=== PATIENT | female | born 1970 | race Asian ===

== ENCOUNTER 2023-05-08 04:09 | Day surgery (SDC) | payer BC ==
[2023-05-01 12:37] VITALS: BMI 21.0
[2023-05-08] MEDS ORDERED: PROPOFOL 20 ML ONE (12:04)
[2023-05-08] MEDS ORDERED: MIDAZOLAM HCL 2 MG/2 ML SINGLE DOSE VIAL ONE (12:04)
[2023-05-08] MEDS ORDERED: oxyCODONE HCL 5 MG TABLET PO PRN ×2 (12:16)
[2023-05-08] MEDS ORDERED: ACETAMINOPHEN 325 MG TABLET (FP) PO PRN (12:16)
[2023-05-08] MEDS ORDERED: BUPIVACAINE HCL/PF 0.5% (5MG/ML) 10 ML VIAL ONE (12:30)
[2023-05-08] MEDS ORDERED: LACTATED RINGERS SOLUTION 1,000 ML IV SCH (12:30)
[2023-05-08] MEDS ORDERED: LIDOCAINE HCL 1%, 10 MG/ML (20ML VIAL) ONE (12:30)
[2023-05-08] MEDS ORDERED: ceFAZolin SODIUM 1 GM VIAL ONE ×2 (13:04)
[2023-05-08] MEDS: ceFAZolin SODIUM 1 GM VIAL IVPB ONE (13:05)
[2023-05-08] MEDS: LIDOCAINE HCL 1%, 10 MG/ML (50 mL VIAL) INF ONE ×2 (13:19)
[2023-05-08] MEDS: BUPIVACAINE HCL/PF 0.5% (5 MG/ML) 30 ML VIAL IJ ONE ×2 (13:19)
[2023-05-08] MEDS ORDERED: ePHEDrine SULFATE 50 MG/1 ML AMPULE ONE (13:25)
[2023-05-08 16:29] VITALS: PULSE 66; RESP 14
[2023-05-08 16:37] VITALS: BP 120/76; TEMP 97.7
[2023-05-08] MEDS: ONDANSETRON 4 MG/2 ML VIAL IVPUSH PRN (16:51)
[2023-05-08] MEDS ORDERED: ONDANSETRON 4 MG/2 ML VIAL ONE (16:52)
== END 2023-05-08 06:48 | disposition home or self-care (01) ==
LOC: JASU-SURG 04:09
PROVIDERS: ATTEND Podiatrist Foot Surgery
PROC: 0SGN04Z Fusion of Left Metatarsal-Phalangeal Joint with Internal Fixation Device, Open Approach (ICD-10-PCS; principal; 2023-05-08 13:00)
DX: M20.12 Hallux valgus (acquired), left foot (principal); M21.612 Bunion of left foot
CPT/HCPCS: 28297; C1713; 76000-TC-FY; 81025; 88305-TC; 88311-TC; 94760

== ENCOUNTER 2023-08-14 04:17 | Day surgery (SDC) | payer BC ==
[2023-08-11 16:21] VITALS: BMI 21.0
[2023-08-14] MEDS ORDERED: LIDOCAINE HCL 1%, 10 MG/ML (20ML VIAL) ONE (09:53)
[2023-08-14] MEDS ORDERED: PROPOFOL 20 ML ONE (09:55)
[2023-08-14] MEDS ORDERED: FENTANYL CITRATE/PF 50 MCG/ML VIAL ONE ×4 (09:55→13:01)
[2023-08-14] MEDS ORDERED: MIDAZOLAM HCL 2 MG/2 ML SINGLE DOSE VIAL ONE (09:55)
[2023-08-14] MEDS ORDERED: LIDOCAINE HCL/PF 2% SDV 5ML VIAL ONE (09:56)
[2023-08-14] MEDS ORDERED: DEXAMETHASONE SOD PHOSPHATE 4 MG/1 ML VIAL ONE (09:56)
[2023-08-14] MEDS ORDERED: ACETAMINOPHEN INJECTION 100 ML IVPB ONE (09:56)
[2023-08-14] MEDS ORDERED: SEVOFLURANE 250 ML BTL ONE (09:56)
[2023-08-14] MEDS ORDERED: ceFAZolin SODIUM 1 GM VIAL ONE (09:56)
[2023-08-14] MEDS ORDERED: ONDANSETRON 4 MG/2 ML VIAL ONE (09:56)
[2023-08-14] MEDS ORDERED: KETOROLAC TROMETHAMINE 30 MG/1 ML VIAL ONE (09:56)
[2023-08-14] MEDS: ceFAZolin SODIUM 1 GM VIAL IVPB ONE (10:21)
[2023-08-14] MEDS: LIDOCAINE HCL 1%, 10 MG/ML (50 mL VIAL) INF ONE ×3 (10:30→10:34)
[2023-08-14] MEDS: BUPIVACAINE HCL/PF 2.5 MG/ML - 30 ML VIAL IJ ONE (11:54)
[2023-08-14] MEDS: BUPIVACAINE HCL/PF 0.25% (2.5MG/ML) 10 ML VIAL IJ ONE (11:54)
[2023-08-14] MEDS ORDERED: PROMETHAZINE HCL 25 MG/1 ML VIAL IVPB PRN (12:33)
[2023-08-14] MEDS ORDERED: ONDANSETRON 4 MG/2 ML VIAL IVPUSH PRN (12:33)
[2023-08-14] MEDS ORDERED: oxyCODONE HCL 5 MG TABLET PO PRN ×2 (12:33)
[2023-08-14] MEDS ORDERED: LACTATED RINGERS SOLUTION 1,000 ML IV SCH (12:45)
[2023-08-14 15:24] VITALS: BP 122/87; PULSE 70; RESP 20; TEMP 97.8
== END 2023-08-14 15:52 | disposition home or self-care (01) ==
LOC: JASU-SURG 04:17
PROVIDERS: ATTEND Podiatrist Foot Surgery
PROC: 0QUP0JZ Supplement Left Metatarsal with Synthetic Substitute, Open Approach (ICD-10-PCS; 2023-08-14)
PROC: 0YPB0YZ Removal of Other Device from Left Lower Extremity, Open Approach (ICD-10-PCS; principal; 2023-08-14 10:00)
DX: T84.84XA Pain due to internal orthopedic prosthetic devices, implants and grafts, initial encounter (principal)
CPT/HCPCS: 76000-TC-FY; 81025; 88300-TC; 94760; C1713; C1776; J0131